=== PATIENT | male | born 1995 | race Caucasian/White ===

== ENCOUNTER 2024-11-17 10:02 | Emergency (ER) | payer OTHER ==
[2024-11-17] MEDS ORDERED: Boostrix 0.5 ML (Tdap) VIAL (>/=7 yrs of age) ONE (10:13)
[2024-11-17] MEDS ORDERED: Bacitracin 1 PK ONE (10:25)
[2024-11-17] MEDS ORDERED: Lidocaine 1% (PF) 30 ML VIAL ONE (10:25)
== END 2024-11-17 11:45 | disposition home or self-care (01) ==
LOC: NAV ERS 10:02
DX: S61.422A Laceration with foreign body of left hand, initial encounter (principal); Z23 Encounter for immunization; Z87.891 Personal history of nicotine dependence; Z79.899 Other long term (current) drug therapy; W26.8XXA Contact with other sharp object(s), not elsewhere classified, initial encounter; Y93.89 Activity, other specified; Y99.0 Civilian activity done for income or pay
CPT/HCPCS: 12001; 90471; 90715